=== PATIENT | male | born 1980 | race Caucasian/White ===

== ENCOUNTER 2020-04-29 18:47 | Emergency (ER) | payer SELFPAY ==
--- NOTE | 2020-04-29 19:48 | EDM.PDOC ---
ED HPI GENERAL MEDICAL PROBLEM - General Chief Complaint: Lower Extremity Injury/Pain Stated Complaint: HARD VEIN LT LEG Time Seen by Provider: 04/29/20 19:31 Source of Information: Reports: Patient History Limitations: Reports: No Limitations - History of Present Illness INITIAL COMMENTS - FREE TEXT/NARRATIVE: History of present illness: [Patient is 40-year-old male who presents with engorged and hardened superficial leg veins of the left lower extremity. He states that he was treated for cellulitis involving the anterior surface of his left upper thigh, the redness and infection seem to resolve but he is now left over with some engorged veins that are hard to the touch. He says they are not particularly tender. His was concerned that it might be a clot and so he decided to come in to get checked out. He denies any chest pain or shortness of breath. He denies history of DVT or PE. Denies fever or chills. Review of systems: As per history of present illness and below otherwise all systems reviewed and negative. Past medical history: As per history of present illness and as reviewed below otherwise noncontributory. Surgical history: As per history of present illness and as reviewed below otherwise noncontributory. Social history: No reported history of drug or alcohol abuse. Family history: As per history of present illness and as reviewed below otherwise noncontributory. Physical exam: General: Awake, alert, no acute distress, A&O X3. HEENT: Atraumatic, normocephalic, pupils reactive, negative for conjunctival pallor or scleral icterus, mucous membranes moist, throat clear, neck supple, nontender, trachea midline. Lungs: Clear to auscultation, breath sounds equal bilaterally, chest nontender. Heart: RRR, normal S1S2, no JVD. Abdomen: Soft, nondistended, nontender. Negative for masses or hepatosplenomegaly. Negative for costovertebral tenderness. Pelvis: Stable nontender. Genitourinary: Deferred. Rectal: Deferred. Extremities: Atraumatic, no edema, Neurovascular unremarkable. Engorged, hard to the touch, superficial veins present on the anterior portion of the left lower extremity, specifically over the anterior thigh. No associated overlying erythema, no lymphatic streaking, no lymphadenopathy. Patient does have some varicose veins that are more prominent in the left leg than on the right, he states that this is chronic. Left leg is neurovascular intact and symmetrical and similar in size to the right leg. Neuro: Motor and sensory grossly intact throughout. Exam nonfocal. Diagnostics: [] Therapeutics: [] Impression: [] Plan: [] Definitive disposition and diagnosis as appropriate pending reevaluation and review of above. Left Upper Leg Pain Score (Numeric/FACES): 3 - Related Data Allergies Allergy/AdvReac Type Severity Reaction Status Date / Time No Known Allergies Allergy Verified 04/29/20 19:37 Home Meds: Home Meds metFORMIN [Glucophage] 500 mg PO BID 04/29/20 [History] Review of Systems - Review of Systems Review Of Systems: Comprehensive ROS is negative, except as noted in HPI. ED EXAM, GENERAL - Physical Exam Exam: See Below (see h and p) Course - Vital Signs Text/Narrative:: Ultrasound confirms superficial thrombophlebitis. Give the patient instructions regarding this diagnosis. Encouraged him to follow-up in the outpatient setting. Otherwise he is stable and well-appearing at the time of discharge. Last Recorded V/S: Last Vital Signs Temp 35.6 C L 04/29/20 19:28 Pulse 104 H 04/29/20 19:28 Resp 18 04/29/20 19:28 BP 138/93 H 04/29/20 19:28 Pulse Ox 97 04/29/20 19:28 Departure - Departure Time of Disposition: 21:37 Disposition: Home, Self-Care 01 Condition: Good Clinical Impression: Superficial thrombophlebitis of left leg - Discharge Information Instructions: Thrombophlebitis Referrals: PCP,Not In Area [Primary Care Provider] - Angel Rajan MD [Ordering Only Provider] - Forms: ED Department Discharge Additional Instructions: Follow-up with primary care doctor and vascular surgery. Take all medications as previously prescribed. Return to ER with any new or worsening symptoms. The following information is given to patients seen in the emergency department who are being discharged to home. This information is to outline your options for follow-up care. We provide all patients seen in our emergency department with a follow-up referral. The need for follow-up, as well as the timing and circumstances, are variable depending upon the specifics of your emergency department visit. If you don't have a primary care physician on staff, we will provide you with a referral. We always advise you to contact your personal physician following an emergency department visit to inform them of the circumstance of the visit and for follow-up with them and/or the need for any referrals to a consulting specialist. The emergency department will also refer you to a specialist when appropriate. This referral assures that you have the opportunity for follow-up care with a specialist. All of these measure are taken in an effort to provide you with optimal care, which includes your follow-up. Under all circumstances we always encourage you to contact your private physician who remains a resource for coordinating your care. When calling for follow-up care, please make the office aware that this follow-up is from your recent emergency room visit. If for any reason you are refused follow-up, please contact the [facility] Emergency Department at and asked to speak to the emergency department charge nurse. Sepsis Event Note (ED) - Evaluation Sepsis Screening Result: No Definite Risk - Focused Exam Vital Signs: Vital Signs Temp Pulse Resp BP Pulse Ox 04/29/20 19:28 35.6 C L 104 H 18 138/93 H 97
--- NOTE | 2020-04-29 21:17 | US ---
Left lower extremity deep venous ultrasound: Duplex and color Doppler evaluation was obtained of the left common femoral, greater saphenous, superficial femoral, popliteal, posterior tibial and peroneal veins. Comparison: No prior venous imaging is available. Findings: Dilated veins are noted off the greater saphenous vein representing superficial branches which show evidence of thrombus. These findings are compatible with superficial thrombophlebitis. Deep veins show normal compression and Doppler blood flow. Impression: 1. Dilated superficial veins off the greater saphenous veins within the thigh showing thrombosis compatible with superficial thrombophlebitis. 2. No evidence of deep venous thrombosis is seen. Diagnostic code #3 This report was dictated in MDT
== END 2020-04-29 21:50 | disposition home or self-care (01) ==
LOC: MW.ED 18:47
DX: I80.02 Phlebitis and thrombophlebitis of superficial vessels of left lower extremity (principal); Z79.84 Long term (current) use of oral hypoglycemic drugs
CPT/HCPCS: 93971-26-LT; 93971-LT; 99282; 99283-25